=== PATIENT | male | born 1995 | race Caucasian/White ===

== ENCOUNTER 2020-06-21 04:29 | Emergency (ER) | payer OTHER ==
[~2020-06-21 04:29] MED LIST: BENTYL 20MG TAB20 MG PO; CLEOCIN HCL300 MG PO; PERCOCET 5/325 T1 EA PO; ZOFRAN ODT 4 MG4 MG SL
[2020-06-21 05:04] LABS: HEMOGLOBIN 14.7 gm/dl (14.0-17.5); RED BLOOD COUNT 4.89 M/UL (4.20-5.50); WHITE BLOOD COUNT 5.8 K/UL (4.5-11.0)
[2020-06-21 05:23] LABS: BUN/CREATININE RATIO 13 (0-10)
== END 2020-06-21 07:30 | disposition home or self-care (01) ==
LOC: ER1 04:29
PROVIDERS: Internal Medicine
DX: T40.1X1A Poisoning by heroin, accidental (unintentional), initial encounter (principal); T40.411A Poisoning by fentanyl or fentanyl analogs, accidental (unintentional), initial encounter
CPT/HCPCS: 80053; 80307; 85025; 99284; G0480